=== PATIENT | female | born 1955 | race Caucasian/White ===

== ENCOUNTER → 2024-03-20 15:34 | Outpatient (REF) | payer MEDICARE, SELFPAY | LOC: HWRAD 15:34 | PROVIDERS: ATTENDING PHYSICIAN Nurse Practitioner Family | DX: J01.01 Acute recurrent maxillary sinusitis (principal); J32.9 Chronic sinusitis, unspecified | CPT/HCPCS: 70486 ==

== ENCOUNTER → 2024-04-09 15:00 | Outpatient (REF) | payer MEDICARE, SELFPAY | LOC: CLAB 15:00 | PROVIDERS: ATTENDING PHYSICIAN Otolaryngology | DX: J32.0 Chronic maxillary sinusitis (principal) | CPT/HCPCS: 87070; 87205 ==

== ENCOUNTER → 2024-08-09 01:00 | Outpatient (REF) | payer MEDICARE, SELFPAY | LOC: CLAB 01:00 | PROVIDERS: ATTENDING PHYSICIAN Otolaryngology | DX: J32.0 Chronic maxillary sinusitis (principal) | CPT/HCPCS: 88304; 88311; 87070; 87075; 87205 ==

== ENCOUNTER → 2025-01-03 14:33 | Outpatient (REF) | payer MEDICARE, SELFPAY | LOC: RAD 14:33 | PROVIDERS: ATTENDING PHYSICIAN Internal Medicine | DX: S24.9XXA Injury of unspecified nerve of thorax, initial encounter (principal) | CPT/HCPCS: 74177; Q9967 ==